=== PATIENT | male | born 1950 | race Caucasian/White ===

== ENCOUNTER → 2017-02-04 | Outpatient (CLI) | payer OTHER ==
[~2017-02-04] MED LIST: IOPAMIDOL (ISOVUE-300) 100 ML BTL ONE
[2017-02-04 15:50] LABS: GLOMERULAR FILTRATION RATE > 60
== END ==
LOC: FIMAGING 14:51
PROVIDERS: ATTEND Internal Medicine
DX: R59.0 Localized enlarged lymph nodes (principal)
CPT/HCPCS: Q9967